=== PATIENT | female | born 1955 | race African-American/Black ===

== ENCOUNTER 2017-04-16 06:22 | Inpatient (IN) | payer OTHER ==
[~2017-04-16] VITALS: Ht 167.6 cm; Wt 55.7 kg
[2017-04-16] VITALS (31 sets, daily range): BP systolic 14–222; BP diastolic 51–112; PULSE 73–97; RESP 9–20; Ht 167.6 cm; Wt 55.7 kg
[~2017-04-16 06:22] MED LIST: CEFAZOLIN 2 GM/50 ML (PMX) 50 ML IVPB SCH
[2017-04-16] MEDS ORDERED: SUCCINYLCHOLINE CHLORIDE 100 MG/5 ML SYG IV ONE (07:00)
[2017-04-16] MEDS ORDERED: SOD CHLORIDE 0.9% 1,000 ML IV SCH (07:00)
[2017-04-16] MEDS ORDERED: EPHEDrine SULFATE 50 MG/5 ML SYG ONE (07:00)
[2017-04-16] MEDS ORDERED: CEFAZOLIN 1 GM INJ ONE (07:00)
[2017-04-16] MEDS ORDERED: OXYCODONE/ACETAMINOPHEN (5/325) TAB PO PRN ×2 (08:00)
[2017-04-16] MEDS ORDERED: FENTAnyl 50 MCG/ML VIAL IV PRN ×2 (08:00)
[2017-04-16] MEDS ORDERED: ONDANSETRON 4 MG INJ IV PRN ×2 (08:00→13:00)
[2017-04-16] MEDS ORDERED: MIDAZOLAM 1 MG/ML 2 ML INJ IV PRN (08:00)
[2017-04-16] MEDS ORDERED: DIPHENHYDRAMINE 50 MG INJ IV PRN (08:00)
[2017-04-16] MEDS ORDERED: MEPERIDINE 25 MG INJ IV PRN (08:00)
[2017-04-16] MEDS ORDERED: EPHEDrine SULFATE 50 MG/5 ML SYG IV PRN (08:00)
[2017-04-16] MEDS ORDERED: ATROPINE 1 MG/10 ML SYRINGE IV PRN (08:00)
[2017-04-16] MEDS ORDERED: hydrALAzine 20 MG INJ IV PRN ×2 (08:00→16:00)
[2017-04-16] MEDS ORDERED: LABETALOL HCL 20MG INJ IV PRN (08:00)
[2017-04-16] MEDS ORDERED: morphine (1 MG/ML) 10ML SYRINGE IV PRN ×3 (08:00)
[2017-04-16] MEDS ORDERED: HYDROmorphONE (0.2 MG/ML) 10ML SYG IV PRN ×3 (08:00)
--- NOTE | 2017-04-16 08:44 | RADRPT ---
PROCEDURE: XR Chest. CLINICAL INDICATION: Preop TECHNIQUE: Frontal chest x-ray was obtained. COMPARISON: None. FINDINGS: Heart is not enlarged. Mediastinum is not widened. No hilar mass is present. Lungs are clear of any infiltrates. There is no effusion or pneumothorax. IMPRESSION: No evidence for active cardiopulmonary disease. .Zeus Coreas MD, MD Date Time Electronically viewed and signed by .Zeus Coreas MD, on 04/16/2017 08:44 .A/
[2017-04-16] MEDS ORDERED: LISI20TA11 PO (09:09)
[2017-04-16] MEDS ORDERED: DIVA250T12 PO (09:09)
[2017-04-16] MEDS ORDERED: TEMA15CA PO (09:10)
[2017-04-16] MEDS ORDERED: RISP3TAB25 PO (09:10)
[2017-04-16] MEDS ORDERED: hydrALAzine 20 MG INJ IV ONE (09:30)
[2017-04-16 10:05] LABS: BASOPHILS % 0.2 % (0.0-2.0); EOSINOPHILS # 0.2 10^3/ul (0.0-0.5); EOSINOPHILS % 2.1 % (0.0-7.0); HEMATOCRIT 39.3 % (37.0-47.0); HEMOGLOBIN 13.3 g/dl (12.0-16.0); LYMPHOCYTES # 1.3 10^3/ul (0.8-2.9); LYMPHOCYTES % 16.2 % (15.0-51.0); MEAN CORPUSCULAR HEMOGLOBIN 33.6 pg (29.0-33.0); MEAN CORPUSCULAR HGB CONC 33.8 g/dl (32.0-37.0); MEAN CORPUSCULAR VOLUME 99.2 fl (82.0-101.0); MEAN PLATELET VOLUME 12.1 fl (7.4-10.4); MONOCYTE # 0.5 10^3/ul (0.3-0.9); MONOCYTES % 6.2 % (0.0-11.0); NEUTROPHIL # 6.2 10^3/ul (1.6-7.5); NEUTROPHILS % 75.1 % (39.0-77.0); PLATELET COUNT 161 10^3/UL (140-415); RED BLOOD COUNT 3.96 10^6/ul (4.20-5.40); RED CELL DISTRIBUTION WIDTH 15.3 % (11.5-14.5); WHITE BLOOD COUNT 8.2 10^3/ul (4.8-10.8)
[2017-04-16 10:27] LABS: ALBUMIN 4.1 g/dl (3.3-4.9); ALBUMIN/GLOBULIN RATIO 1.07; BILIRUBIN,INDIRECT 0.5 mg/dl (0-1.1); BILIRUBIN,TOTAL 0.5 mg/dl (0.2-1.3); INR 0.89; PROTIME 12.1 Sec (11.9-14.9); PT RATIO 0.9; TOTAL PROTEIN 7.9 g/dl (6.1-8.1)
[2017-04-16 10:32] LABS: PARTIAL THROMBOPLASTIN TIME 30.8 Sec (25.0-35.0)
[2017-04-16 10:34] LABS: CALCIUM 9.9 mg/dl (8.4-10.2); CREATININE 0.82 mg/dl (0.44-1.00)
[2017-04-16] MEDS ORDERED: LIDOCAINE 2% (SDV) 5 ML INJ ONE (10:47)
[2017-04-16] MEDS ORDERED: NEOSTIGMINE 3 MG/3 ML SYRINGE ONE (10:47)
[2017-04-16] MEDS ORDERED: GLYCOPYRROLATE 0.4 MG INJ ONE (10:47)
[2017-04-16] MEDS ORDERED: ROCURONIUM 50 MG INJ ONE (10:47)
[2017-04-16] MEDS ORDERED: PROPOFOL 20 ML ONE (10:47)
[2017-04-16] MEDS ORDERED: FENTAnyl 50 MCG/ML VIAL ONE (10:48)
[2017-04-16] MEDS ORDERED: DEXAMETHASONE 4 MG/ML 1 ML INJ ONE (10:48)
[2017-04-16] MEDS ORDERED: MIDAZOLAM 1 MG/ML 2 ML INJ ONE (10:48)
[2017-04-16] MEDS ORDERED: ONDANSETRON 4 MG INJ ONE (10:49)
[2017-04-16] MEDS ORDERED: ISOSULFAN BLUE 1% 5 ML INJ SC ONE ×2 (11:24→11:35)
--- NOTE | 2017-04-16 12:45 | SIPON ---
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
[2017-04-16] MEDS ORDERED: ACETAMINOPHEN 1000MG/100ML IV 100 ML IVPB PRN (13:00)
--- NOTE | 2017-04-16 13:05 | OPR ---
DATE OF OPERATION: PREOPERATIVE DIAGNOSIS: Locally advanced right breast cancer. POSTOPERATIVE DIAGNOSIS: Locally advanced right breast cancer. OPERATION PERFORMED: Needle-directed right partial mastectomy and axillary dissection utilizing sen tinel lymph node technique. ANESTHESIA: General. ANESTHESIOLOGIST: Zack Adler MD. SURGEON: Kofi Quintana MD. POLYSOMNOGRAPHY TECH: Dr. Nathan Shirley. INDICATIONS FOR PROCEDURE: The patient is a 61-year-old female who presented several months ago wit h a very large right breast mass, biopsy confirmed cancer. She was HER-2 positive and was best char zayda with neoadjuvant chemotherapy. Her neoadjuvant chemotherapy was interrupted due to noncomplianc e and toxicity. Eventually, she completed it and had moderate to good response. She was counseled as to the benefit of breast conservation surgery with needle-directed partial mastectomy and axillar y dissection utilizing sentinel lymph node technique. She consented and was scheduled for surgery. DESCRIPTION OF PROCEDURE: On the morning of surgery, the patient presented to [facility] where she underwent localization of the lesion performed by attending radiol ogist, . Subsequently, she was brought to the operating theater, placed under general anes thesia. The right breast and axillary region was prepped and draped in usual sterile fashion. Appr oximately 4 mL of 1% Lymphazurin blue dye were then injected peritumorally and the breast was gently massaged for approximately 12 minutes. At this point, a 3-cm incision was made in the right axilla ry hairline. Subcutaneous tissue was dissected with cautery down through the clavipectoral fascia. A dye-stained lymphatic was identified and traced to a somewhat firm sentinel lymph node. This lym ph node was removed and inspected by attending pathologist, Dr. Dina Real, who recommended removi ng additional axillary lymph nodes. Therefore, level 1 and level 2 nodes were resected using the Li gaSure device. They were removed and sent also for permanent pathologic analysis. Wound was irriga zayda and decision was made not to place a SHAMA drain. The skin was then closed with 4-0 Vicryl in subc uticular fashion. Attention was then directed to performing the partial mastectomy. The localization wire was at appr oximately the 5 o'clock location. A curvilinear incision was made in this area and subcutaneous tis joseph was dissected with cautery. Skin edges were elevated with a skin hook. Wide circumferential di ssection of the tissue associated with the wire then took place. Specimen was elevated, transected, oriented and sent for permanent pathologic analysis. The wound was irrigated. Minimal bleeding wa s controlled with cautery. The skin was then reapproximated with 4-0 Vicryl suture in subcuticular fashion. Dermabond was then applied to both incisions. The patient tolerated procedure well. The estimated blood loss was 20 mL. There were no complications and the patient was transported in stab le condition to the recovery room where circumferential compression dressing was applied. Dictated By: KOFI QUINTANA MD TL/YOGI Conf#: [id number] DID#: [id number] CC: NATHAN SHIRLEY MD;*EndCC*
[2017-04-16] MEDS ORDERED: LABETALOL HCL 20MG INJ ONE (13:08)
[2017-04-16] MEDS: D5W-0.45 NACL + KCL 20 MEQ 1,000 ML IV SCH ×2 (15:43→20:45)
[2017-04-16] MEDS: LISINOPRIL 20 MG TAB PO SCH (17:53)
[2017-04-16] MEDS: NICOTINE (14 MG/24 HR) PATCH TRANSDERM SCH (17:54)
--- NOTE | 2017-04-16 18:15 | HP ---
DATE OF ADMISSION: 04/16/2017 HISTORY OF PRESENT ILLNESS: The patient is a 61-year-old female with history of hypertension, brain aneurysm repair with some residual weaknesses. Patient presented with a large right breast mass wi th subsequent biopsy confirmed cancer. Patient is HER2-positive and patient was best treated with n eoadjuvant chemotherapy; however, her neoadjuvant chemotherapy with interrupted due to noncompliance and toxicity. Eventually the patient completed it and had moderate to good response. The patient was evaluated by Dr. Quintana in surgical consultation and patient was brought to the hospital and unde rwent needle-directed right partial mastectomy and axillary dissection utilizing sentinel lymph node technique. Postoperatively, the patient experiencing moderate pain. Patient also had episode of h ypertension and was given labetalol in recovery, and the patient will be admitted for further evalua tion and management. PAST MEDICAL HISTORY: Positive for hypertension, tobacco dependence, and brain aneurysm. PAST SURGICAL HISTORY: Status post brain aneurysm repair in 2002 and status post hysterectomy in . FAMILY HISTORY: The patient stated that she is adopted and does not know her family medical history . SOCIAL HISTORY: Patient smokes 1 pack of cigarettes per day, occasionally smokes marijuana. Gokul harrison also smokes cocaine, last time smoked 3 weeks ago. The patient denies any alcohol use. ALLERGIES: NO KNOWN ALLERGIES. HOME MEDICATIONS: Include divalproex ER, lisinopril, Risperdal and temazepam p.r.n. for insomnia. REVIEW OF SYSTEMS: A 12-point review of systems is negative unless what is mentioned in the HPI. PHYSICAL ASSESSMENT: GENERAL: Well-developed, well-nourished female, currently is awake, alert, in no acute distress. VITAL SIGNS: Temperature is 98.5, pulse is 86, blood pressure is 117/68, respiratory rate ____, oxy gen saturation 97% on room air. HEENT: Head is atraumatic, normocephalic. Pupils equal, round, reactive to light and accommodation . Oral mucosa is pink and moist. NECK: Supple, no cervical lymphadenopathy, no thyromegaly. CHEST: Lungs clear bilaterally. There is no rhonchi, wheezes, rales noted. CARDIOVASCULAR: Normal S1, S2. No murmurs, gallops, clicks, rubs noted. CHEST: Dressing is dry, clean and intact with a right axillary SHAMA drain. ABDOMEN: Round, soft, nondistended, nontender. Bowel sounds present. EXTREMITIES: There is no edema, clubbing, cyanosis. CARDIOVASCULAR: Normal S1, S2. No murmurs, gallops, clicks, rubs noted. EXTREMITIES: No edema, clubbing, cyanosis. Pulses equal bilaterally 2+. SKIN: There is no rash, petechiae noted. NEUROLOGIC: Patient is awake, alert, and oriented, moves all extremities. Mild speech impairment, however, I am able to understand what the patient is saying. LABORATORY DATA: On admission, CBC: White blood cells 8.2, hemoglobin 13.3, hematocrit 39.3, plate lets 161. Chemistry: Sodium is 143, potassium 4.0, chloride 105, carbon dioxide 29, anion gap 15, BUN is 12, creatinine 0.82, glucose 91, calcium 9.9, AST 17, ALT 27, alkaline phosphatase 75. ASSESSMENT AND PLAN: 1. Locally advanced right breast cancer, status post needle-directed right partial mastectomy and a xillary dissection utilizing sentinel lymph node technique by Dr. Quintana on 04/16. Continue with Zof ran p.r.n. for nausea and Tylenol and morphine p.r.n. for pain. Continue postoperative antibiotics and IV fluids. 2. Hypertension. We will continue lisinopril and hydralazine p.r.n. for systolic blood pressure __ __ 170. 3. Tobacco dependence. Tobacco cessation was strongly advised. Will start nicotine patch while obed south is in-house. 4. History of cocaine use. 5. Possible chronic obstructive pulmonary disease. Will continue breathing treatment p.r.n. for sh ortness of breath. Continue sequential compression devices for deep venous thrombosis prophylaxis. Further recommendations based on clinical course. Plan of care discussed with Dr. Jarrett. Dictated By: CARMEN LATIF MOVING WORKER for ZEN JARRETT MD SR/NTS Conf#: [id number] DID#: [id number] CC: ROSALBA QUINTANA MD;*EndCC*
[2017-04-16] MEDS: morphine 2 MG INJ IV PRN ×2 (22:24→23:56)
[2017-04-16] MEDS: DIVALPROEX (ER) 250 MG TAB PO SCH (23:28)
[2017-04-17 00:06] VITALS: BP 121/60; RESP 18
[2017-04-17] MEDS: D5W-0.45 NACL + KCL 20 MEQ 1,000 ML IV SCH ×2 (00:42→07:59)
[2017-04-17] MEDS: morphine 2 MG INJ IV PRN ×2 (02:52→07:53)
[2017-04-17 04:15] VITALS: BP 112/76; PULSE 88; RESP 17
[2017-04-17 05:39] LABS: BASOPHILS % 0.1 % (0.0-2.0); EOSINOPHILS % 0.4 % (0.0-7.0); HEMATOCRIT 30.1 % (37.0-47.0); HEMOGLOBIN 10.2 g/dl (12.0-16.0); LYMPHOCYTES # 1.6 10^3/ul (0.8-2.9); LYMPHOCYTES % 21.9 % (15.0-51.0); MEAN CORPUSCULAR HEMOGLOBIN 33.3 pg (29.0-33.0); MEAN CORPUSCULAR HGB CONC 33.9 g/dl (32.0-37.0); MEAN CORPUSCULAR VOLUME 98.4 fl (82.0-101.0); MEAN PLATELET VOLUME 11.3 fl (7.4-10.4); MONOCYTE # 0.6 10^3/ul (0.3-0.9); MONOCYTES % 8.1 % (0.0-11.0); NEUTROPHIL # 5.2 10^3/ul (1.6-7.5); NEUTROPHILS % 69.2 % (39.0-77.0); PLATELET COUNT 143 10^3/UL (140-415); RED BLOOD COUNT 3.06 10^6/ul (4.20-5.40); RED CELL DISTRIBUTION WIDTH 15.4 % (11.5-14.5); WHITE BLOOD COUNT 7.5 10^3/ul (4.8-10.8)
[2017-04-17 06:08] LABS: CALCIUM 8.8 mg/dl (8.4-10.2); CREATININE 0.91 mg/dl (0.44-1.00); POTASSIUM 3.6 mmol/L (3.5-5.1)
[2017-04-17 07:35] VITALS: BP 117/63; RESP 18
[2017-04-17] MEDS: NICOTINE (14 MG/24 HR) PATCH TRANSDERM SCH (07:53)
[2017-04-17] MEDS: LISINOPRIL 20 MG TAB PO SCH (07:53)
[2017-04-17] MEDS: DIVALPROEX (ER) 250 MG TAB PO SCH (07:59)
--- NOTE | 2017-04-17 11:31 | PN ---
Date/Time of Note Date/Time of Note DATE: 04/17/17 TIME: 11:30 Assessment/Plan VTE Prophylaxis VTE Prophylaxis Intervention: other Lines/Catheters IV Catheter Type (from Nrsg): Peripheral IV Assessment/Plan Chief Complaint/Hosp Course 1. Locally advanced right breast cancer, status post needle-directed right partial mastectomy and axillary dissection utilizing sentinel lymph node technique by Dr. Quintana on 04/16. Continue with Zofran p.r.n. for nausea and Tylenol and morphine p.r.n. for pain. Continue postoperative antibiotics and IV fluids. 2. Hypertension. We will continue lisinopril and hydralazine p.r.n. for systolic blood pressure ____ 170. 3. Tobacco dependence. Tobacco cessation was strongly advised. Will start nicotine patch while patient is in-house. 4. History of cocaine use. 5. Possible chronic obstructive pulmonary disease. Will continue breathing treatment p.r.n. for shortness of breath. Continue sequential compression devices for deep venous thrombosis prophylaxis. Further recommendations based on clinical course. Plan of care discussed with Dr. Mayers. Problems: Subjective 24 Hr Interval Summary Free Text/Dictation Patient has some pain related to surgery Exam/Review of Systems Vital Signs Vitals Vital Signs Date Time Temp Pulse Resp B/P Pulse Ox O2 Delivery O2 Flow Rate FiO2 04/17/17 07:35 98.8 74 18 117/63 98 04/17/17 04:15 Room Air Intake and Output 04/16/17 04/16/17 04/17/17 15:00 23:00 07:00 Intake Total 900 ml 675 ml 1855 ml Output Total 30 ml 1000 ml Balance 870 ml 675 ml 855 ml Exam Constitutional: well developed Head: atraumatic, normocephalic Neck: supple Respiratory: clear to auscultation Cardiovascular: regular rate and rhythm Gastrointestinal: non-tender, soft Extremities: normal pulses Results Result Diagram: 04/17/17 0447 04/17/17 044 Results 24 hrs Laboratory Tests Test 04/16/17 16:55 04/17/17 04:47 Valproic Acid (Depakene) Level < 10 L White Blood Count 7.5 Red Blood Count 3.06 #L Hemoglobin 10.2 #L Hematocrit 30.1 #L Mean Corpuscular Volume 98.4 Mean Corpuscular Hemoglobin 33.3 H Mean Corpuscular Hemoglobin Concent 33.9 Red Cell Distribution Width 15.4 H Platelet Count 143 Mean Platelet Volume 11.3 H Neutrophils % 69.2 Lymphocytes % 21.9 Monocytes % 8.1 Eosinophils % 0.4 Basophils % 0.1 Nucleated Red Blood Cells % 0.0 Neutrophils # 5.2 Lymphocytes # 1.6 Monocytes # 0.6 Eosinophils # 0.0 Basophils # 0.0 Nucleated Red Blood Cells # 0.0 Sodium Level 139 Potassium Level 3.6 Chloride Level 107 Carbon Dioxide Level 25 Anion Gap 11 Blood Urea Nitrogen 15 Creatinine 0.91 Glucose Level 133 # Calcium Level 8.8 Medications Medications Current Medications Ondansetron HCl 4 mg 4 mg Q6H PRN IV NAUSEA AND/OR VOMITING; Start 04/16/17 at 13:00 Potassium Chloride/Dextrose/ Sod Cl (D5-1/2ns + KCl 20 Meq) 1,000 ml @ 125 mls/ hr Q8H IV Last administered on 04/17/17 07:59; Admin Dose 125 MLS/HR; Start 04/16/17 at 12:45 Morphine Sulfate 2 mg 2 mg Q1H PRN IV PAIN Last administered on 04/17/17 07:53 ; Admin Dose 2 MG; Start 04/16/17 at 13:00 Acetaminophen (Ofirmev 1000mg/ 100ml Iv) 100 ml @ 400 mls/hr Q6H PRN IVPB PAIN ; Start 04/16/17 at 13:00 Divalproex Sodium (Depakote Er) 250 mg DAILY PO Last administered on 04/17/17 07:59; Admin Dose 250 MG; Start 04/16/17 at 17:00 Lisinopril (Zestril) 20 mg DAILY PO Last administered on 04/17/17 07:53; Admin Dose 20 MG; Start 04/16/17 at 17:00 Hydralazine HCl (Apresoline) 10 mg Q4H PRN IV SBP>170; Start 04/16/17 at 16:00 Nicotine (Nicoderm 14 Mg/ 24hr) 1 patch DAILY TRANSDERM Last administered on 07:53; Admin Dose 1 PATCH; Start 04/16/17 at 17:00 Influenza Virus Vaccine (Fluzone) 0.5 ml ONCE ONCE IM* ; Start 04/18/17 at 17: 30; Stop 04/18/17 at 17:31 FILI MULTANI Apr 17, 2017 11:31
--- NOTE | 2017-04-17 16:13 | PN ---
DATE: 04/17/2017 Postop day #1 status post right breast partial mastectomy with axillary sampling. SUBJECTIVE: No complaint. OBJECTIVE: VITAL SIGNS: Stable, 98.8 temperature, heart rate 74, saturation 97%, blood pressure normal. There is no drain for the patient. LABORATORY DATA: WBC 7500 with 69% neutrophils, hemoglobin 10.2, hematocrit 30. Chemistry: Sodium , potassium, BUN, creatinine within normal limits. DRESSING: The Benny bandage around the chest is slightly tight, so decision was made to redo it again and make it looser. ASSESSMENT: This is a 61-year-old female who underwent needle-directed right breast partial mastect shahid with axillary dissection yesterday. Postop, she is doing fine. Vital signs are stable. Blood pressure is under control. I talked to the patient's son on the phone and instruction was given. A ll of his questions were answered. The patient is going to be discharged today to be followed by Dr Brigida Padilla in the office. Dictated By: ALLISON SHIRLEY MD PS/NTS Conf#: [id number] DID#: [id number] CC: ROSALBA PADILLA MD;*EndCC*
[2017-04-18] MEDS ORDERED: INFLUENZA VIRUS VACCINE 0.5 ML SYG IM* ONE (17:30)
--- NOTE | 2017-04-20 14:23 | RADRPT ---
Vent Rate: 68 bpm RR Interval: 0 msec DE Interval: 174 msec QRS Duration: 84 msec QT Interval: 400 msec QTC Interval: 425 msec P-R-T [place]: 72 - 86 - 80 degrees Normal sinus rhythm Normal ECG Electronically Signed By: Brian Chapin [id number]
== END 2017-04-17 15:50 | disposition home or self-care (01) | DRG 581 ==
LOC: SDS 06:22 → REC 12:45 → SDS 12:45 → MS1 15:05
PROVIDERS: ADMIT Surgery Surgical Oncology; ATTEND Surgery Surgical Oncology
PROC: 07B50ZX Excision of Right Axillary Lymphatic, Open Approach, Diagnostic (ICD-10-PCS; 2017-04-16)
PROC: 0HBT0ZZ Excision of Right Breast, Open Approach (ICD-10-PCS; principal; 2017-04-16 11:00)
DX: C50.911 Malignant neoplasm of unspecified site of right female breast (principal); I10 Essential (primary) hypertension; Z72.0 Tobacco use; F14.90 Cocaine use, unspecified, uncomplicated; J44.9 Chronic obstructive pulmonary disease, unspecified
CPT/HCPCS: 71010; 80048; 80053; 80164; 85025; 85610; 85730; 88307; 88309; 93005; J0360; J0690; J1100; J2250; J2270; J2405; J2710; J3010; J3480; Q9968

== ENCOUNTER 2017-06-21 07:05 | Inpatient (IN) | END 2017-06-22 16:55 | disposition home or self-care (01) | DRG 583 ==